=== PATIENT | male | born 1980 | race Caucasian/White ===

== ENCOUNTER → 2017-08-09 | Outpatient (CLI) | payer BC ==
--- NOTE | 2017-08-09 09:18 | DIAGNOSTIC IMAGING REPORT ---
(BARIUM SWALLOW) ESOPHAGUS CLINICAL HISTORY: 37 years-old Male presenting with ATYPICAL CHEST PAIN. TECHNIQUE: A standard air contrast barium esophagram is performed. Multiple spot images of the esophagus are acquired both upright and prone. COMPARISON: None. FINDINGS: The patient was able to ingest barium without difficulty. The patient was unable to ingest the barium pill. Normal mucosal pattern. No evidence of intrinsic or extrinsic mass lesion. No aspiration observed. The gastroesophageal junction distended normally. No gastroesophageal reflux could be elicited despite provocative maneuvers. Fluoroscopy dosage (mGy): Not available. Fluoroscopy time: 1.3 minutes. Number of fluoroscopic spot images: 21. IMPRESSION: Normal fluoroscopic examination of the esophagus. Electronically signed by: Nicolas Tyson M.D. 08/09/2017 9:17 AM Dictated Date/Time: 08/09/2017 9:16 AM
== END | disposition home or self-care (01) ==
LOC: C.RAD 08:40
PROVIDERS: ATTEND Internal Medicine
DX: R07.89 Other chest pain (principal)